=== PATIENT | female | born 1985 | race Hispanic/Latino ===

== ENCOUNTER 2020-02-25 09:56 | Emergency (ER) | payer MEDICARE ==
[~2020-02-25] VITALS: Ht 149.9 cm; Wt 61.2 kg
--- NOTE | 2020-02-25 10:42 | Emergency Department Note ---
History of Present Illnes History of Present Illness Chief Complaint: COVID PUI History of Present Illness This is a 34 year old female arrives the ED with nonspecific complaints about chest pain with cough and deep inspiration. 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 Patient complaining of subjective fevers, denies any shortness of breath. Historian: Patient Arrival Mode: Car Onset (how long ago): day(s) Severity: mild Onset quality: gradual Duration (how long): day(s) Timing of current episode: intermittent Progression: unchanged Chronicity: new Past Medical/Family History Physician Review I have reviewed the patient's past medical and family history. Any updates have been documented here. Past Medical History Recent Fever: No Clinical Suspicion of Infectio: No New/Unexplained Change in Ment: No Past Medical History: None Past Surgical History: Family History Family history of heart diseas: No Other Last Tetanus: UNKNOWN Review of Systems Review of Systems Constitutional: Reports as per HPI, Reports fever EENTM: Reports no symptoms Cardiovascular: Reports no symptoms Respiratory: Reports as per HPI, Reports pain with cough Gastrointestinal: Reports no symptoms Genitourinary: Reports no symptoms Musculoskeletal: Reports no symptoms Integumentary: Reports no symptoms Neurological: Reports no symptoms Psychological: Reports no symptoms Endocrine: Reports no symptoms Hematological/Lymphatic: Reports no symptoms Physical Exam Related Data Allergies: Coded Allergies: No Known Allergies (Unverified , 02/25/20) Triage Vital Signs Vital Signs Date Time Temp Pulse Resp B/P (MAP) Pulse Ox O2 Delivery O2 Flow Rate FiO2 02/25/20 10:15 97.7 81 18 119/82 99 Vital signs reviewed: Yes Physical Exam CONSTITUTIONAL Constitutional: Present well-developed, Present well-nourished HENT HENT: Present normocephalic, Present atraumatic, Present oropharynx clear/moist, Present nose normal HENT L/R: Present left ext ear normal, Present right ext ear normal EYES Eyes: Reports PERRL, Reports conjunctivae normal NECK Neck: Present ROM normal PULMONARY Pulmonary: Present effort normal, Present breath sounds normal CARDIOVASCULAR Cardiovascular: Present regular rhythm, Present heart sounds normal, Present capillary refill normal, Present normal rate GASTROINTESTINAL Abdominal: Present soft, Present nontender, Present bowel sounds normal GENITOURINARY Genitourinary: Present exam deferred SKIN Skin: Present warm, Present dry MUSCULOSKELETAL Musculoskeletal: Present ROM normal NEUROLOGICAL Neurological: Present alert, Present oriented x 3, Present no gross motor or sensory deficits PSYCHOLOGICAL Psychological: Present mood/affect normal, Present judgement normal Results Laboratory Lab results reviewed: Yes Imaging Imaging results reviewed: Yes Impressions Normal chest x-ray Assessment & Plan Medical Decision Making MDM 34-year-old female arrived to the ED with concerns of 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 Patient informed she is "positive until proven otherwise. Patient also complained of dysuria, positive UA. Patient discharged home on antibiotics. Assessment & Plan Final Impression: (1) COVID-19 (2) Urinary tract infection Depart Disposition: HOME, SELF-CARE Last Vital Signs Date Time Temp Pulse Resp B/P (MAP) Pulse Ox O2 Delivery O2 Flow Rate FiO2 02/25/20 10:15 97.7 81 18 119/82 99 Home Meds Active Scripts Nitrofurantoin Monohyd/M-Cryst (MACROBID 100 MG CAPSULE) 100 Mg Capsule, 100 MG PO BIDWM, #10 CAP Prov:JAIME GONZALES DO 02/25/20 JAIME GONZALES, Feb 25, 2020 10:42
[2020-02-25 11:09] LABS: CLARITY,URINE SL CLOUDY (CLEAR); COLOR,URINE YELLOW (YELLOW); KETONES,URINE NEGATIVE (NEGATIVE); LEUKOCYTE ESTERASE ,URINE SMALL (NEGATIVE); NITRITE,URINE NEGATIVE (NEGATIVE); PROTEIN,URINE DIPSTICK NEGATIVE (NEGATIVE); URINE UROBILINOGEN 1 mg/dL (0.2 - 1)
[2020-02-25 11:10] LABS: BILIRUBIN,URINE NEGATIVE (NEGATIVE)
--- NOTE | 2020-02-25 11:21 | Diagnostic Imaging Report ---
EXAMINATION: CHEST SINGLE (PORTABLE) INDICATION: Chest pain, shortness of breath COMPARISON: None FINDINGS: LINES/TUBES:None LUNGS:The lungs are well-inflated. No focal consolidation or pulmonary edema. PLEURA:No pleural effusion or pneumothorax. MEDIASTINUM:The cardiomediastinal silhouette appears normal in size and shape. BONES/SOFT TISSUES:No acute osseous injury. ABDOMEN:No free air under the diaphragm. IMPRESSION: No focal pneumonia or pulmonary edema. Signed by: Edilberto Penaloza MD on 02/25/2020 11:18 AM
[2020-02-25 11:25] LABS: BACTERIA,URINE MANY /HPF; EPITHELIAL CELLS,URINE MODERATE /LPF; RBC,URINE 0-5 /HPF (0-5); WBC,URINE (MAN) >50 /HPF (0-5)
[2020-02-25] MEDS ORDERED: MACROBID 100 M100 MG PO (11:39)
== END 2020-02-25 12:44 | disposition home or self-care (01) ==
LOC: ER 09:56
DX: U07.1 COVID-19 (principal); N39.0 Urinary tract infection, site not specified; R05 Cough; R30.0 Dysuria
CPT/HCPCS: 71045; 81001; 99283